=== PATIENT | female | born 1990 | race Caucasian/White ===

== ENCOUNTER 2021-03-26 09:26 | Day surgery (SDC) | payer BC ==
[~2021-03-26 09:26] MED LIST: Glycopyrrolate 0.2 MG/ML SDV ONE; Ketorolac 30 MG/ML SDV ONE; Lidocaine 2% 5 ML SDV ONE; Midazolam 1 MG/ML 2 ML SDV ONE; Ondansetron 4 MG/2 ML SDV ONE; Propofol 200 MG/20 ML SDV ONE; fentaNYL 100 MCG/2 ML SDV ONE
--- NOTE | 2021-03-26 09:59 | PCM.PREANE ---
Preanesthetic Assessment - Procedure Proposed Procedure: LEEP - Anesthesia/Transfusion/Family Hx Anesthesia History: Prior Anesthesia Without Reaction Family History of Anesthesia Reaction: No Transfusion History: No Prior Transfusion(s) - Review of Systems General: No Symptoms Pulmonary: No Symptoms (Smokes 1PPD) Cardiovascular: No Symptoms Gastrointestinal: No Symptoms (GERD, Well controlled) Neurological: No Symptoms Other: Reports: None - Physical Assessment NPO Status Date: 03/25/21 NPO Status Time: 22:00 Vital Signs: Last Vital Signs Temp 97.5 F 03/26/21 09:55 Pulse 87 03/26/21 09:55 Resp 16 03/26/21 09:55 BP 144/93 H 03/26/21 09:55 Pulse Ox 97 03/26/21 09:55 Height: 5 ft 8 in Weight: 130.635 kg ASA Class: 3 Mental Status: Alert & Oriented x3 Airway Class: Mallampati = 1 Dentition: Reports: Normal Dentition Thyro-Mental Finger Breadths: 3 Mouth Opening Finger Breadths: 3 ROM/Head Extension: Full Lungs: Clear to Auscultation, Normal Respiratory Effort Cardiovascular: Regular Rate, Regular Rhythm - Allergies Allergies/Adverse Reactions: Allergies Allergy/AdvReac Type Severity Reaction Status Date / Time No Known Allergies Allergy Verified 03/21/21 09:37 - Acknowledgements Anesthesia Type Planned: General Anesthesia Pt an Appropriate Candidate for the Planned Anesthesia: Yes Alternatives and Risks of Anesthesia Discussed w Pt/Guardian: Yes Pt/Guardian Understands and Agrees with Anesthesia Plan: Yes PreAnesthesia Questionnaire HEENT History: Reports: None Cardiovascular History: Reports: Other (See Below) Other Cardiovascular History: hypertensive during - Pre-eclampsia Respiratory History: Reports: None Gastrointestinal History: Reports: GERD Genitourinary History: Reports: UTI, Recurrent Other Genitourinary History: UTI's as a baby [employer] History: Reports: Musculoskeletal History: Reports: Fracture Other Musculoskeletal History: left arm Neurological History: Reports: None Psychiatric History: Reports: None Endocrine/Metabolic History: Reports: Obesity/BMI 30+ Hematologic History: Reports: None Immunologic History: Reports: None Oncologic (Cancer) History: Reports: Other (See Below) Other Oncologic History: HPV Dermatologic History: Reports: Other (See Below) Other Dermatologic History: hx of MRSA - Past Surgical History Head Surgeries/Procedures: Reports: None HEENT Surgical History: Reports: EDUARDO, Tonsillectomy Cardiovascular Surgical History: Reports: None Respiratory Surgical History: Reports: None GI Surgical History: Reports: None Female Surgical History: Reports: Section, Other (See Below) Other Female Surgeries/Procedures: Ureteral Reimplantation at age 4 Endocrine Surgical History: Reports: None Musculoskeletal Surgical History: Reports: ORIF Other Musculoskeletal Surgeries/Procedures:: ORIF left arm- has plate and screws - SUBSTANCE USE Tobacco Use Status *Q: Current Every Day Tobacco User Tobacco Use Within Last Twelve Months: Cigarettes Recreational Drug Use History: No - HOME MEDS Home Medications: Home Meds Acetaminophen [Tylenol Extra Strength] 1,000 mg PO Q6H PRN 03/21/21 [History] Omeprazole 40 mg PO DAILY 03/21/21 [History] - CURRENT (IN HOUSE) MEDS Current Meds: Current Medications Discontinued Medications Fentanyl (Fentanyl 100 Mcg/2 Ml Sdv) Confirm Administered Dose 100 mcg .ROUTE .STK-MED ONE Stop: 03/26/21 07:23 Glycopyrrolate (Glycopyrrolate 0.2 Mg/Ml Sdv) Confirm Administered Dose 0.2 mg .ROUTE .STK-MED ONE Stop: 03/26/21 07:24 Ketorolac Tromethamine (Ketorolac 30 Mg/Ml Sdv) Confirm Administered Dose 30 mg .ROUTE .STK-MED ONE Stop: 03/26/21 07:24 Lidocaine (Lidocaine 2% 5 Ml Sdv) Confirm Administered Dose 5 ml .ROUTE .STK-MED ONE Stop: 03/26/21 07:24 Midazolam HCl (Midazolam 1 Mg/Ml 2 Ml Sdv) Confirm Administered Dose 2 mg .ROUTE .STK-MED ONE Stop: 03/26/21 07:23 Ondansetron HCl (Ondansetron 4 Mg/2 Ml Sdv) Confirm Administered Dose 4 mg .ROUTE .STK-MED ONE Stop: 03/26/21 07:24 Propofol (Propofol 200 Mg/20 Ml Sdv) Confirm Administered Dose 200 mg .ROUTE .STK-MED ONE Stop: 03/26/21 07:23
[2021-03-26] MEDS ORDERED: Metoclopramide 10 MG/2 ML SDV IVPUSH PRN (10:12)
[2021-03-26] MEDS ORDERED: fentaNYL 100 MCG/2 ML SDV IVPUSH PRN (10:12)
[2021-03-26] MEDS ORDERED: Ondansetron 4 MG/2 ML SDV IVPUSH PRN (10:12)
[2021-03-26] MEDS ORDERED: Naloxone 0.4 MG/ML SDV IVPUSH PRN (10:12)
[2021-03-26] MEDS ORDERED: HYDROmorphone 1 MG/ML Syringe IVPUSH PRN (10:12)
[2021-03-26] MEDS ORDERED: Acetaminophen 1,000 MG in Premix Bag 1 BAG IV PRN (10:12)
[2021-03-26] MEDS ORDERED: Albuterol 0.083% 2.5 MG/3 ML Neb Soln NEB PRN (10:12)
--- NOTE | 2021-03-26 10:37 | PCM.POSTAN ---
POST ANESTHESIA ASSESSMENT - MENTAL STATUS Mental Status: Alert, Oriented - VITAL SIGNS Vital Signs: Last Vital Signs Temp 97.3 F 03/26/21 10:28 Pulse 90 03/26/21 10:33 Resp 16 03/26/21 10:28 BP 109/54 L 03/26/21 10:33 Pulse Ox 91 L 03/26/21 10:33 - RESPIRATORY Respiratory Status: Respiratory Rate WNL, Airway Patent, O2 Saturation Stable - CARDIOVASCULAR CV Status: Pulse Rate WNL, Blood Pressure Stable - GASTROINTESTINAL GI Status: No Symptoms - PAIN Pain Score: 2 - POST OP HYDRATION Hydration Status: Adequate & Stable
--- NOTE | 2021-03-26 10:57 | PCM48HPAN ---
Post Anesthesia Note - EVALUATION WITHIN 48HRS OF ANESTHETIC Vital Signs in Normal Range: Yes Patient Participated in Evaluation: Yes Respiratory Function Stable: Yes Airway Patent: Yes Cardiovascular Function Stable: Yes Hydration Status Stable: Yes Pain Control Satisfactory: Yes Nausea and Vomiting Control Satisfactory: Yes Mental Status Recovered: Yes Vital Signs: Last Vital Signs Temp 97.3 F 03/26/21 10:28 Pulse 89 03/26/21 10:54 Resp 12 03/26/21 10:54 BP 129/67 03/26/21 10:54 Pulse Ox 94 L 03/26/21 10:54 - COMMENTS/OBSERVATIONS Free Text/Narrative:: Pt doing well post-op. VSS. No apparent anesthetic complications. Dr. Primitivo Pereyra
--- NOTE | 2021-03-26 11:07 | PCM.OPNOTE ---
- General Post-Op/Procedure Note Date of Surgery/Procedure: 03/26/21 Operative Procedure(s): LEEP Findings: non-staining area at 4 to 5 clock of ectocervix with lugols Pre Op Diagnosis: HARRY III Post-Op Diagnosis: Same Anesthesia Technique: General ET Tube Primary Surgeon: Heather Bowden Anesthesia Provider: Primitivo Pereyra Spouter: Kj Farooq Pathology: ectocervix labeled at 12 o'clock, endocervical curettings. EBL in mLs: 5 Complications: None Known Condition: Good Free Text/Narrative:: Intake & Output 03/25/21 03/26/21 03/26/21 22:59 06:59 14:59 Intake Total 800 Balance 800
--- NOTE | 2021-03-26 15:55 | OR ---
SURGEON: Heather Bowedn M.D. DATE OF PROCEDURE: 03/26/2021 PREOPERATIVE DIAGNOSIS: Cervical intraepithelial neoplasia 3. POSTOPERATIVE DIAGNOSIS: Cervical intraepithelial neoplasia 3. PROCEDURE: Loop electrode excisional procedure. PRIMARY SURGEON: Heather Bowden M.D. ANESTHESIA: LMA. ESTIMATED BLOOD LOSS: Less than 5 mL. FINDINGS: The entire transition zone was visualized on colposcopy, and there were no discrete lesions. However, there was a clear lesion from 4 to 5 o'clock on the ectocervix that was nonstaining with Lugol, and this corresponds to the area of HARRY-3. PROCEDURE IN DETAIL: A total of 10 mL of 1% lidocaine with epinephrine was injected at the 12, 5, and 7 o'clock position of the cervix. The anterior lip of the cervix was grasped with an Allis clamp with the insulated speculum in place. Pure cut setting of 60 was utilized with a loop to excise the ectocervix which was removed and labeled at 12 o'clock. Sharp curettage of the endocervix was then performed and Cytobrush was utilized to collect the ECC tissue and was sent as a separate specimen. The base was cauterized with ball-tip coag setting of 60 and Monsel solution was applied. The base was hemostatic. All the instruments removed from the vagina. Final sponge, needle, and instrument counts were reported as correct. There were no known complications. The patient was transferred to Recovery in good condition. GUILLAUME / JUANITA /[id number]
== END 2021-03-26 11:37 | disposition home or self-care (01) ==
LOC: MW.SDS 09:26
PROVIDERS: ATTEND Obstetrics & Gynecology
DX: D06.9 Carcinoma in situ of cervix, unspecified (principal); K21.9 Gastro-esophageal reflux disease without esophagitis; F17.210 Nicotine dependence, cigarettes, uncomplicated; E66.9 Obesity, unspecified; Z79.899 Other long term (current) drug therapy
CPT/HCPCS: 57522; J1885; J2250; J2704; J3490; 00940; J2405; J3010